=== PATIENT | female | born 1970 | race African-American/Black ===

== ENCOUNTER 2017-04-30 22:34 | Emergency (ER) | payer MEDICARE ==
[~2017-04-30] VITALS: Ht 160 cm; Wt 56.2 kg
[2017-04-30] MEDS ORDERED: SEROQUEL XR400 MG ORAL (23:16)
[2017-04-30 23:20] VITALS: BP 164/89
--- NOTE | 2017-04-30 23:37 | Emergency Room Report ---
History of Present Illness General Chief Complaint: Behavioral Complaint Source: Patient Present Illness HPI Is a 46-year-old female with history of schizophrenia. She's not been herself well because she lost her insurance card. She present with chief complaint of hearing voices. This is a chronic problem. No suicidal thought homicidal thought. No drug use. Denies any other complaint. Said that she wants something to eat. Allergies: Coded Allergies: No Known Allergies (Unverified , 04/30/17) Patient History Past Medical History: see triage record, old chart reviewed Past Surgical History: other Family History: none Social History: tobacco use Last Menstrual Period: APR 20, 2017 Now: No Immunizations: other Reviewed Nursing Documentation: PMH: Agreed, PSxH: Agreed Nursing Documentation-PMH Past Medical History: No History, Except For History Of Psychiatric Problem: Yes - SCHIZOPHRENIC DISORDER Review of Systems ENT: Denies: sore throat Cardiovascular: Denies: chest pain, palpitations Gastrointestinal/Abdominal: Denies: nausea, vomiting, diarrhea Musculoskeletal: Denies: back problems Skin: Denies: rash Neurological: Denies: RUIZ, seizures All Other Systems: negative except mentioned in HPI Physical Exam Vital Signs Date Time Temp Pulse Resp B/P (MAP) Pulse Ox O2 Delivery O2 Flow Rate FiO2 04/30/17 23:13 97.5 79 16 164/89 100 Room Air vitals normal of high blood pressure Sp02 EP Interpretation: reviewed, normal General Appearance: alert/responsive, no apparent distress, non-toxic Head: normocephalic, atraumatic Eyes: PERRL, EOMI ENT: oropharynx normal Neck: supple/symm/no masses Respiratory: effort normal, no rhonchi, no wheezing Cardiovascular: no murmur, gallop, rub Gastrointestinal: non-tender, no mass, non-distended, no rebound/guarding, normal bowel sounds Musculoskeletal: gait & station normal Neurologic: oriented x3, sensory intact, motor strength/tone normal Skin: no rash, normal palpation Medical Decision Making Diagnostic Impression: Primary Impression: Psychosis Qualified Codes: F23 - Brief psychotic disorder ER Course Patient presents With psychosis. She's calm. No evidence of homicidal thoughts or suicidal thought. No criteria for 5150 Last Vital Signs Date Time Temp Pulse Resp B/P (MAP) Pulse Ox O2 Delivery O2 Flow Rate FiO2 04/30/17 23:13 97.5 79 16 164/89 100 Room Air Status: unchanged Disposition: HOME, SELF-CARE Condition: Stable Additional Instructions: Take your medication. Followup with your Dr. in 7 days. Return if worse. JANAE SHAW M.D. Apr 30, 2017 23:37
[2017-05-01 00:20] VITALS: BP 164/89
== END 2017-05-01 00:20 | disposition home or self-care (01) ==
LOC: EMR 23:22
DX: F29 Unspecified psychosis not due to a substance or known physiological condition (principal); F20.9 Schizophrenia, unspecified
CPT/HCPCS: 99282